=== PATIENT | female | born 1945 | race Caucasian/White ===

== ENCOUNTER → 2018-03-14 | Outpatient (CLI) | payer OTHER | END | disposition home or self-care (01) | LOC: FIMAGING 14:52 | PROVIDERS: ATTEND Orthopaedic Surgery | DX: M16.12 Unilateral primary osteoarthritis, left hip (principal) ==

== ENCOUNTER 2018-03-29 05:47 | Inpatient (IN) | payer OTHER ==
[2018-03-29] MEDS ORDERED: POVIDONE-IODINE 20 ML in SODIUM CL IRRIG SOLUTION 500 ML IRR ONE (06:00)
[2018-03-29] MEDS ORDERED: TRANEXAMIC ACID 1,000 MG in NS 100 ML IV ONE (06:00)
[2018-03-29] MEDS ORDERED: ROPIVACAINE 0.2% 80 MG, EPINEPHrine 0.2 MG, KETOROLAC TROMETHAMINE 30 MG in SYRINGE 0 ML IU ONE (06:00)
[2018-03-29] MEDS ORDERED: DEXAMETHASONE 4 MG/ML VIAL IVP ONE (06:02)
[2018-03-29] MEDS ORDERED: FAMOTIDINE 20 MG TAB PO ONE (06:02)
[2018-03-29] MEDS ORDERED: ACETAMINOPHEN 325 MG TAB PO ONE (06:02)
[2018-03-29] MEDS ORDERED: ceFAZolin 2 GM/DEXTROSE 100 ML IV ONE (06:02)
[2018-03-29] MEDS ORDERED: LR 1,000 ML IV ONE (06:03)
[2018-03-29] MEDS ORDERED: BUPIVACAINE/EPI 0.5% 30 ML SDV ONE (06:42)
[2018-03-29] MEDS ORDERED: BUPIVACAINE/DEXTROSE 7.5MG/ML 2 ML SPINAL AMP SP ONE ×2 (07:05→09:05)
[2018-03-29] MEDS ORDERED: PROPOFOL/EMULSION 500 MG/50 ML BOTTLE IV ONE (07:06)
--- NOTE | 2018-03-29 07:06 | PDANEPAE ---
ANE Past Medical History - Cardiovascular History Hx Hypertension: No Hx Arrhythmias: No Hx Chest Pain: No Hx Coronary Artery / Peripheral Vascular Disease: No Hx CHF / Valvular Disease: No Hx Palpitations: No - Pulmonary History Hx COPD: No Hx Asthma/Reactive Airway Disease: No Hx Recent Upper Respiratory Infection: No Hx Oxygen in Use at Home: No Hx Sleep Apnea: No Sleep Apnea Screening Result - Last Documented: Negative - Neurologic History Hx Cerebrovascular Accident: No Hx Seizures: No Hx Dementia: No - Endocrine History Hx Diabetes: No - Renal History Hx Renal Disorders: No - Liver History Hx Hepatic Disorders: No - Neurological & Psychiatric Hx Hx Neurological and Psychiatric Disorders: No - Cancer History Hx Cancer: Yes Cancer History Comment: SQUAMOUS REMOVED - Congenital Disorder History Hx Congenital Disorders: No - GI History Hx Gastrointestinal Disorders: No - Other Health History Other Health History: NEG - Chronic Pain History Chronic Pain: Yes (L HIP PAIN & L LEG) - Surgical History Prior Surgeries: CARPAL TUNNEL L. BUNIONECTOMY R ANE Review of Systems Review of Systems: - Exercise capacity METS (RN): 4 METS ANE Patient History - Allergies Allergies/Adverse Reactions: No Known Allergies Allergy (Unverified 03/19/18 13:36) - Home Medications Home Medications: ARIPiprazole [Abilify 5 mg (*)] 2.5 mg PO Q2D 03/15/18 [Last Taken 1 Day Ago ~] Herbals/Supplements -Info Only 1 ea PO DAILY 03/15/18 [Last Taken 1 Week Ago ~] Multivitamins [Multivitamin (*)] 1 each PO DAILY 03/15/18 [Last Taken 1 Week Ago ~03/22/18] [place]-3 Fatty Acids [Fish Oil 1000 mg (*)] 1,000 mg PO DAILY 03/15/18 [Last Taken 1 Week Ago ~03/22/18] PARoxetine HCL [Paxil 10mg (*)] 10 mg PO DAILY 03/15/18 [Last Taken 1 Day Ago ~ 03/28/18] - NPO status NPO Since - Liquids (Date): 03/29/18 NPO Since - Liquids (Time): 03:00 NPO Since - Solids (Date): 03/28/18 NPO Since - Solids (Time): 21:00 - Smoking Hx Smoking Status: Never smoked - Family Anes Hx Family Hx Anesthesia Complications: NEG ANE Labs/Vital Signs - Vital Signs Blood Pressure: 144/83 Heart Rate: 66 Respiratory Rate: 16 O2 Sat (%): 95 Height: 167.64 cm Weight: 75.75 kg ANE Physical Exam - Airway Neck exam: FROM Mallampati Score: Class 2 - Pulmonary Pulmonary: clear to auscultation - Cardiovascular Cardiovascular: regular rate and rhythym - ASA Status ASA Status: II ANE Anesthesia Plan Anesthesia Plan: spinal
--- NOTE | 2018-03-29 07:07 | PDHPUP ---
History & Physical Update H&P update statement: This history and physical update is based on an assessment of the patient which was completed after admission or registration (within 24 hours), but prior to the surgery/procedure. H&P update: H&P reviewed & patient examined, no change in patient's condition since H&P completed
[2018-03-29] MEDS ORDERED: fentaNYL 100 MCG/2 ML INJ ONE ×2 (07:47→10:03)
[2018-03-29] MEDS ORDERED: DEXAMETHASONE 4 MG/ML VIAL ONE ×3 (07:50→08:31)
[2018-03-29] MEDS ORDERED: SUGAMMADEX SODIUM 200 MG/2 ML VIAL IVP ONE ×2 (08:28→08:46)
[2018-03-29] MEDS ORDERED: ONDANSETRON 4 MG/2 ML VIAL ONE (08:28)
--- NOTE | 2018-03-29 08:41 | POSTANESTH ---
Post Anesthetic Evaluation Cardiovascular Status: Normal, Stable Respiratory Status: Normal, Stable Level of Consciousness/Mental Status: Can Participate in Eval Pain Control: Adequate, Prn Tx Ordered Nausea/Vomiting Control: Adequate, Prn Tx Ordered Complications Possibly Related to Anesthesia: None Noted
[2018-03-29] MEDS ORDERED: PHENYLEPHRINE HCL 100 MCG/ML SYR ONE (08:47)
[2018-03-29] MEDS ORDERED: LR 500 ML IV PRN (09:02)
[2018-03-29] MEDS ORDERED: LABETALOL HCL 5 MG/ML 20 ML MDV IVP PRN (09:02)
[2018-03-29] MEDS ORDERED: ALBUTEROL 3 ML DEYVIAL IH PRN (09:02)
[2018-03-29] MEDS ORDERED: DIAZEPAM 5 MG/ML 1 ML SYR IVP PRN (09:02)
[2018-03-29] MEDS ORDERED: NALOXONE HCL 0.4 MG/ML INJ IVP PRN (09:02)
[2018-03-29] MEDS ORDERED: ONDANSETRON 4 MG/2 ML VIAL IVP PRN ×2 (09:02→09:49)
[2018-03-29] MEDS ORDERED: PROMETHAZINE HCL 25 MG/ML INJ IVP PRN ×2 (09:02→09:49)
[2018-03-29] MEDS ORDERED: MEPERIDINE 25 MG/0.5 ML AMP IVP PRN (09:02)
[2018-03-29] MEDS ORDERED: ACETAMINOPHEN 500 MG TAB PO PRN (09:02)
[2018-03-29] MEDS ORDERED: HYDROmorphONE/DILAUDID 2 MG/ML INJ IVP PRN (09:02)
[2018-03-29] MEDS ORDERED: DEXAMETHASONE 4 MG/ML VIAL IVP PRN (09:02)
[2018-03-29] MEDS ORDERED: PHENYLEPHRINE HCL 100 MCG/ML SYR IVP PRN (09:02)
[2018-03-29] MEDS ORDERED: METOCLOPRAMIDE 10 MG/2 ML VIAL IVP PRN (09:02)
[2018-03-29] MEDS ORDERED: LACTULOSE 20 GM/30 ML UDCUP PO PRN (09:49)
[2018-03-29] MEDS ORDERED: DIPHENOXYLATE/ATROPINE LOMOTIL 1 TAB PO PRN (09:49)
[2018-03-29] MEDS ORDERED: PROMETHAZINE HCL 25 MG SUPPR PR PRN (09:49)
[2018-03-29] MEDS ORDERED: diphenhydrAMINE 25 MG CAP PO PRN (09:49)
[2018-03-29] MEDS ORDERED: BISACODYL 10 MG SUPP PR PRN (09:49)
[2018-03-29] MEDS ORDERED: TEMAZEPAM 15 MG CAP PO PRN (09:49)
[2018-03-29] MEDS ORDERED: POLYETHYLENE GLYCOL 3350 17 GM PKT PO PRN (09:49)
[2018-03-29] MEDS ORDERED: CYCLOBENZAPRINE 10 MG TAB PO PRN (09:49)
[2018-03-29] MEDS ORDERED: ONDANSETRON DISINTEGRATING 4 MG TAB PO PRN (09:49)
[2018-03-29] MEDS ORDERED: MAGNESIUM HYDROXIDE 30 ML UDCUP PO PRN (09:49)
--- NOTE | 2018-03-29 09:49 | POSTOPPROG ---
Post Op Note Date of Operation: 03/29/18 Surgeon: Giovany Miles Grouter Helper: VASILIY Sahu Anesthesiologist: MD Linda Anesthesia: GET(General Endotracheal) Pre-op Diagnosis: left hip OA Post-op Diagnosis: same Procedure: Left anterior JACQUI with FAITH Inf/Abcess present in the surg proc area at time of surgery?: No EBL: 100-500 (350) Complications: no Drains: Hemovac
[2018-03-29] MEDS ORDERED: LR 1,000 ML IV SCH (10:00)
[2018-03-29] MEDS ORDERED: DIAZEPAM 5 MG/ML 1 ML SYR ONE (10:03)
[2018-03-29] MEDS: fentaNYL 100 MCG/2 ML INJ IVP PRN ×3 (10:10→11:02)
--- NOTE | 2018-03-29 11:09 | PDMN ---
Medical Necessity Medical necessity: [facility] S560 Hip Arthroplasty: 73 yo s/p L JACQUI, [facility] IP only
[2018-03-29] MEDS: ACETAMINOPHEN 325 MG TAB PO SCH ×2 (11:56→18:13)
[2018-03-29] MEDS: oxyCODONE IR 5 MG TAB PO PRN (11:57)
--- NOTE | 2018-03-29 12:28 | GOP ---
DATE OF OPERATION: 03/29/2018 SURGEON: Giovany Miles MD HYDRATION PLANT OPERATOR: Ranjit Sahu, CSFA, LSA Dog Show Judge was required for the procedure due to the patient's condition for positioning, prepping, dr amanda, retraction, and closure. ANESTHESIA: General. PREOPERATIVE DIAGNOSIS: Left hip osteoarthritis. POSTOPERATIVE DIAGNOSIS: Left hip osteoarthritis. PROCEDURE PERFORMED: Left hip anterior approach hip replacement with MAKOplasty robotic guidance, fl uoroscopic supervision greater than 1 hour. FINDINGS: SPECIMENS: Femoral head. ESTIMATED BLOOD LOSS: 300 cc. INDICATIONS: Patient has severe hip osteoarthritis that failed to improve with conservative measures significantly affecting activities of daily living, including walking. Patient would like to procee d with anterior approach hip replacement using MAKOplasty robotic guidance. After extensive discussi on of all possible approaches, as well as the risks, benefits, pros, cons, and expected recovery and prognosis, patient verbalized understanding. Risks and benefits, and signed inform consent prior to the procedure. DESCRIPTION OF PROCEDURE: The patient was seen in the holding area. Operative site, consent, and ex tremity were signed. Patient was taken to the operating room. After smooth induction of general ane sthesia patient placed in supine position on operating table with the arch table extension. Hip and contralateral iliac crest were prepped and draped in usual sterile fashion. The operative site was c onfirmed by signature. Operative time-out performed. Allergies reviewed. Antibiotics and TXA were administered. Three pins were placed in the contralateral iliac crest and the pelvic array was fixed, well visualiz ed by the robot. The desired incision for the anterior approach of the hip was infiltrated with 0.25 % Marcaine with epinephrine. The incision was made with a 10 blade and carried through subcutaneous tissue to identify the TFL fascia. This was incised in line with the incision. The TFL was retracte d laterally and the lateral femoral circumflex vessels were coagulated with Aquamantys. Deep TFL fas charissa was incised and the vastus lateralis was clearly exposed. Pericapsular fat was excised and T-sha ped capsulotomy performed. The capsule was preserved for later closure. The femoral neck cut was th en performed based on pre-templated calculations and imaging. The femoral head was excised with a co rkscrew. The acetabulum was exposed in standard fashion. Labrum, pulvinar, and soft tissue were excised sharp ly. The pelvic checkpoint was placed in the AIIS. Acetabular registration was performed using the r obot and reaming was then performed using the robot to the desired size. Cup was impacted in place, again with robotic guidance. Good fixation was achieved. The cup was irrigated and dried, and the l iner was impacted into place achieving good locking within the cup. Femur was then exposed in standa rd fashion. The femur was broached to the desired size. Trial neck and head were attached, and the hip was relocated. Position of all components was confirmed fluoroscopically. Foot was externally r otated 90 degrees, extended down to the port, and stability was confirmed. The hip was then dislocat ed. Femoral trial components were removed and the stem was impacted into place. The trunnion was cl eaned and dried, and the head was impacted onto the trunnion. The wound was copiously irrigated, inc luding cup with pulse lavage, and hip was once again relocated. Component placed and it was confirme d fluoroscopically. were removed. The pelvic array was removed. The wound was copiously irrigated with sterile solution. Dilute Betadine solution was then irrigated into the wound and all owed to soak for 3 minutes before being irrigated out. Joint cocktail was indirect head o f the rectus femoris was repaired with #1 Vicryl suture. Drain was placed exiting distally and later ally from deep to TFL. The wound was closed in layers 0 deep subcutaneous fat, 3-0 Versal ok in the dermis. The wound was dressed with sterile dressings. The patient was safely awakened, ex tubated,and taken to the recovery room in stable condition. . All critical portions of the procedure were performed by myself, Dr. Miles. This operative note was c reated by myself, and I was immediately available for emergency cross-coverage at all times. DRAINS: . COMPLICATIONS: None. IMPLANTS: Trident II hemispherical acetabular shell size 46 mm with a 0 degree, 32 mm poly liner, Ac colade II size 5 stem 127 degree offset, with 32 mm +0 head. /[id number]/MODL
[2018-03-29] MEDS ORDERED: ceFAZolin 2 GM/DEXTROSE 100 ML IV SCH (14:00)
[2018-03-29] MEDS: ceFAZolin 2 GM/DEXTROSE 100 ML IV SCH (15:44)
[2018-03-29] MEDS: FAMOTIDINE 20 MG TAB PO SCH (21:32)
[2018-03-29] MEDS: SENNOSIDES/DOCUSATE SODIUM TAB PO SCH (21:32)
[2018-03-30] MEDS: ceFAZolin 2 GM/DEXTROSE 100 ML IV SCH (00:26)
[2018-03-30] MEDS: ACETAMINOPHEN 325 MG TAB PO SCH ×2 (00:30→06:30)
[2018-03-30] MEDS: oxyCODONE IR 5 MG TAB PO PRN (01:11)
--- NOTE | 2018-03-30 07:25 | SOAPPROG ---
SOAP Progress Note Assessment/Plan: Assessment: Plan: Objective: Vital Signs Temp Pulse Resp BP Pulse Ox 36.8 C 71 16 118/62 96 03/30/18 04:00 03/30/18 04:00 03/30/18 04:00 03/30/18 04:00 03/30/18 04:00 Laboratory Results 03/30/18 04:26 03/29/18 03/30/18 03/31/18 05:59 05:59 05:59 Intake Total 0 Output Total 1954 Balance 245 ICD10 Worksheet Patient Problems: Problems Problem Status Onset Osteoarthritis of left hip Acute
--- NOTE | 2018-03-30 07:31 | SOAPPROG ---
SOAP Progress Note Assessment/Plan: Assessment: Postop day 1 status post left anterior approach total hip with El Plan: Weight-bearing as tolerated with assistance, PT/OT DVT prophylaxis: SCDs, Jorje hose, Lovenox 40 mg daily x3 weeks Incentive spirometry 10 times per hour Disposition: Home today after PT 03/30/18 07:28 Subjective: No acute events. Pain currently well controlled this morning. Denies fevers chills nausea vomiting chest pain shortness of breath numbness or tingling Objective: Vital Signs Temp Pulse Resp BP Pulse Ox 36.8 C 71 16 118/62 96 03/30/18 04:00 03/30/18 04:00 03/30/18 04:00 03/30/18 04:00 03/30/18 04:00 Laboratory Results 03/30/18 04:26 03/29/18 03/30/18 03/31/18 05:59 05:59 05:59 Intake Total 2200 Output Total 1955 Balance 245 Awake alert and oriented x3 Easy nonlabored breathing Left hip: Dressing clean dry intact no erythema drainage or signs of infection Hemovac drain removed, site clean dry intact Thigh and calf compartments soft compressible Motor intact to EHL FHL tibialis anterior gastrocsoleus Palpable DP PT pulses - Pending Discharge Pending Discharge Within 24 Hours: Yes Pending Discharge Date: 03/30/18 Pending Discharge Time: 11:00 ICD10 Worksheet Patient Problems: Problems Problem Status Onset Osteoarthritis of left hip Acute
[2018-03-30 07:39] VITALS: BP 112/60
--- NOTE | 2018-03-30 07:41 | PDIAF ---
- Diagnosis Code Status: Full Code - Medication Management Discharge Medications: electronically signed and located in the Home Medication List. - Orders Services needed: Home Care, Physical Therapy Home Care Face to Face: I certify that this patient was under my care and that I had the required [id number] encounter meeting the encounter requirements on the discharge day. My findings support the fact that the patient is homebound as defined in Home Care Face to Face Continued: CMS Chapter 7 Medicare Benefits Manual 30.1.1 , The condition of the patient is such that there exists a normal inability to leave home and consequently, leaving home would require a considerable and taxing effort. Diet Recommendation: no restrictions on diet Diet Texture: Regular Texture Diet Wound Care Instructions: keep dressing c/d/i x 2wks. May remove at 2wks - keep steri strips in place. May shower immediately - reinforce dressings with plastic wrap. Activity/Weight Bearing Restrictions: WBAT Additional Instructions: WBAT Keep dressing c/d/i x 2wks - Follow Up Care Current Providers and Referrals: Giovany Miles MD [Medical Doctor] - JEFF YODER [Primary Care Provider] -
[2018-03-30] MEDS ORDERED: PARoxetine HCL 10 MG TAB PO SCH (09:00)
[2018-03-30] MEDS ORDERED: MULTIVITAMINS 1 EACH TAB PO SCH (09:00)
[2018-03-30] MEDS ORDERED: ENOXAPARIN 40 MG/0.4 ML SYR SC SCH (09:00)
[2018-03-30] MEDS: FAMOTIDINE 20 MG TAB PO SCH (09:36)
[2018-03-30] MEDS: SENNOSIDES/DOCUSATE SODIUM TAB PO SCH (09:45)
--- NOTE | 2018-03-30 11:18 | ASDISCHSUM ---
Discharge Information Plan Status:Home with Home Health Medically Cleared to Leave: Discharge Date:03/30/2018 11:04 AM CM D/C Disposition: ADT D/C Disposition:Home, Routine, Self-Care Projected Discharge Date:03/30/2018 11:00 AM Transportation at D/C: Discharge Delay Reason: Follow-Up Date:03/30/2018 11:00 AM Discharge Slot: Final Diagnosis: Placement Information Referral Type:*Home Health Care Services Referral ID:[id number] Provider Name:[facility] [place] Address 1:[address] [place] [address] Address 2: City:[place] Selection Factors: State:[place] Patient Contact Information Contact Name:EMILIANA Relationship: Address: Work Phone: City: [facility] Phone: [facility] Code: Email: Financial Information Financial Class:Medicare Primary Plan Desc:MEDICARE INPATIENT Primary Plan Number:[id number] Secondary Plan Desc:[employer] Secondary Plan Number:[id number] Assessment Information LACE LACE Length of stay for Answers: 2 days current admission Acuity / Level of Answers: Yes Care: Did the patient have an inpatient admission? Comorbidities - select Answers: Opioid dependence all that apply / Chronic pain # of Emergency department Answers: 0 visits in the last 6 months Score: 9 Date Signed: 03/30/2018 11:16 AM Electronically Signed By:ELVIRA Henderson [facility] CM Progress Note CM Note CM Note Notes: PT rec HHC. Pt medically stable for d/c with [facility], pt address/phone verified. Orders sent in [place]. Date Signed: 03/30/2018 11:17 AM Electronically Signed By:ELVIRA Henderson Intervention Information
[2018-03-31] MEDS ORDERED: ARIPiprazole 5 MG TAB PO SCH (09:00)
== END 2018-03-30 11:04 | disposition home or self-care (01) | DRG 470 ==
LOC: F3N 05:47
PROVIDERS: ADMIT Orthopaedic Surgery; ATTEND Orthopaedic Surgery
DX: M16.12 Unilateral primary osteoarthritis, left hip (principal); E78.00 Pure hypercholesterolemia, unspecified; Z87.891 Personal history of nicotine dependence; Z86.010 Personal history of colon polyps
CPT/HCPCS: 97116-GP; 97161-GP; 97165-GO; J0171; J0690; J1100; J1650; J1885; J2370; J2405; J2704; J2795; J3010; J3360